=== PATIENT | female | born 1950 ===

== ENCOUNTER 2021-09-27 04:50 | Day surgery (SDC) | payer OTHER ==
[~2021-09-27 04:50] MED LIST: LEVOTHY PO; OMEPRAZ PO; RELAF PO; ZESTRIL10 M1 PO
== END 2021-09-27 15:30 | disposition home or self-care (01) ==
LOC: CIR.AMB 04:50 → EDBD 10:30 → CIR.AMB 10:30
PROVIDERS: ATTEND Colon & Rectal Surgery
DX: K64.2 Third degree hemorrhoids (principal); K60.0 Acute anal fissure; K64.4 Residual hemorrhoidal skin tags; I10 Essential (primary) hypertension; I25.2 Old myocardial infarction; Z87.891 Personal history of nicotine dependence; E03.9 Hypothyroidism, unspecified; M19.90 Unspecified osteoarthritis, unspecified site; K76.0 Fatty (change of) liver, not elsewhere classified; K57.30 Diverticulosis of large intestine without perforation or abscess without bleeding